=== PATIENT | female | born 1945 ===

== ENCOUNTER 2017-11-11 08:29 | Outpatient (CLI) | payer OTHER ==
[~2017-11-11 08:29] MED LIST: DOLOGESIC CAPSU1 CAP PO; ORPH100T PO
== END 2017-11-11 08:35 | disposition home or self-care (01) ==
LOC: RAD 08:29
DX: M15.8 Other polyosteoarthritis (principal); M05.79 Rheumatoid arthritis with rheumatoid factor of multiple sites without organ or systems involvement

== ENCOUNTER 2017-12-30 08:00 | Outpatient (CLI) | payer OTHER | END 2017-12-30 08:07 | disposition home or self-care (01) | LOC: MRI 08:00 | DX: M75.22 Bicipital tendinitis, left shoulder (principal) | CPT/HCPCS: 73221 ==

== ENCOUNTER 2017-12-31 07:21 | Outpatient (CLI) | payer OTHER | END 2017-12-31 07:28 | disposition home or self-care (01) | LOC: TOM 07:21 | DX: R10.30 Lower abdominal pain, unspecified (principal); K22.70 Barrett's esophagus without dysplasia; K57.30 Diverticulosis of large intestine without perforation or abscess without bleeding; K58.9 Irritable bowel syndrome, unspecified | CPT/HCPCS: 74178; Q9965 ==

== ENCOUNTER → 2018-01-23 | Outpatient (CLI) | payer OTHER | END | disposition home or self-care (01) | LOC: NUCLEAR 08:18 | DX: I87.2 Venous insufficiency (chronic) (peripheral) (principal) ==

== ENCOUNTER 2024-01-28 07:42 | Outpatient (CLI) | payer OTHER | END 2024-01-28 07:43 | disposition home or self-care (01) | LOC: NUCLEAR 07:42 | PROVIDERS: ATTEND Internal Medicine | DX: I87.2 Venous insufficiency (chronic) (peripheral) (principal); G31.1 Senile degeneration of brain, not elsewhere classified; G31.9 Degenerative disease of nervous system, unspecified; I11.9 Hypertensive heart disease without heart failure; E55.0 Rickets, active; E55.9 Vitamin D deficiency, unspecified ==